=== PATIENT | female | born 1980 | race African-American/Black ===

== ENCOUNTER 2016-06-01 12:24 | Emergency (ER) | payer OTHER ==
--- NOTE | 2016-06-01 12:57 | EDM.PDOC ---
ED HPI GENERAL MEDICAL PROBLEM - General Chief Complaint: Back Pain or Injury Stated Complaint: PT FELT ON HER BUTT Time Seen by Provider: 06/01/16 12:29 - History of Present Illness INITIAL COMMENTS - FREE TEXT/NARRATIVE: HISTORY AND PHYSICAL: History of present illness: Patient 36-year-old white female 2 weeks status post fall patient states she slipped on the ice and struck her buttock she had continued pain in the region of her coccyx she denies other trauma or concern Review of systems: As per history of present illness and below otherwise all systems reviewed and negative. Past medical history: As per history of present illness and as reviewed below otherwise noncontributory. Surgical history: As per history of present illness and as reviewed below otherwise noncontributory. Social history: No reported history of drug or alcohol abuse. Family history: As per history of present illness and as reviewed below otherwise noncontributory. Physical exam: HEENT: Atraumatic, normocephalic, pupils reactive, negative for conjunctival pallor or scleral icterus, mucous membranes moist, throat clear, neck supple, nontender, trachea midline. Lungs: Clear to auscultation, breath sounds equal bilaterally, chest nontender. Heart: S1S2, regular, negative for clicks, rubs, or JVD. Abdomen: Soft, nondistended, nontender. Negative for masses or hepatosplenomegaly. Negative for costovertebral tenderness. Pelvis: Stable nontender. Genitourinary: Deferred. Rectal: Deferred. Extremities: Atraumatic, negative for cords or calf pain. Neurovascular unremarkable. Neuro: Awake, alert, oriented. Cranial nerves II through XII unremarkable. Cerebellum unremarkable. Motor and sensory unremarkable throughout. Exam nonfocal. Back: Tenderness noted in the region of the coccyx no crepitation lumbar spine negative patient was in her toes back on her heels motor sensory and deep tendon reflexes normal Diagnostics: X-ray coccyx/sacrum Therapeutics: None Impression: #1 coccygeal injury Definitive disposition and diagnosis as appropriate pending reevaluation and review of above. tail bone area Pain Score (Numeric/FACES): 6 - Related Data Allergies Allergy/AdvReac Type Severity Reaction Status Date / Time No Known Allergies Allergy Verified 06/01/16 12:33 Home Meds: Home Meds . [No Known Home Meds] 06/01/16 [History] Past Medical History HEENT History: Reports: None Cardiovascular History: Reports: None Respiratory History: Reports: None Gastrointestinal History: Reports: None Genitourinary History: Reports: None PATIENT SERVICES ASSISTANT History: Reports: None Musculoskeletal History: Reports: None Neurological History: Reports: None Psychiatric History: Reports: None Endocrine/Metabolic History: Reports: None Hematologic History: Reports: None Immunologic History: Reports: None Oncologic (Cancer) History: Reports: None Dermatologic History: Reports: None - Infectious Disease History Infectious Disease History: Reports: None - Past Surgical History Female Surgical History: Reports: Other (see below) Other Female Surgeries/Procedures: fibroid removal in uterus Social & Family History - Family History Family Medical History: Noncontributory - Tobacco Use Smoking Status *Q: Never Smoker - Caffeine Use Caffeine Use: Reports: Tea - Recreational Drug Use Recreational Drug Use: No ED ROS GENERAL - Review of Systems Review Of Systems: ROS reveals no pertinent complaints other than HPI. ED EXAM, GENERAL - Physical Exam Exam: See Below (See dictation) Course - Vital Signs Last Recorded V/S: Last Vital Signs Temp 36.3 C 06/01/16 12:33 Pulse 72 06/01/16 12:33 Resp 16 06/01/16 12:33 BP 132/79 06/01/16 12:33 Pulse Ox 98 06/01/16 12:33 - Orders/Labs/Meds Orders: Active Orders 24 hr Category Date Time Status Sacrum Coccyx Min 2V [CR] Stat Exams 06/01/16 12:39 Ordered URINALYSIS W/MICROSCOPIC [UA W/MICROSCOPIC] [URIN] Stat Lab 06/01/16 12:45 Ordered Departure - Departure Time of Disposition: 12:56 Disposition: Home, Self-Care 01 Condition: good Clinical Impression: Coccygeal injury Forms: ED Department Discharge Additional Instructions: The following information is given to patients seen in the emergency department who are being discharged to home. This information is to outline your options for follow-up care. We provide all patients seen in our emergency department with a follow-up referral. The need for follow-up, as well as the timing and circumstances, are variable depending upon the specifics of your emergency department visit. If you don't have a primary care physician on staff, we will provide you with a referral. We always advise you to contact your personal physician following an emergency department visit to inform them of the circumstance of the visit and for follow-up with them and/or the need for any referrals to a consulting specialist. The emergency department will also refer you to a specialist when appropriate. This referral assures that you have the opportunity for followup care with a specialist. All of these measure are taken in an effort to provide you with optimal care, which includes your followup. Under all circumstances we always encourage you to contact your private physician who remains a resource for coordinating your care. When calling for followup care, please make the office aware that this follow-up is from your recent emergency room visit. If for any reason you are refused follow-up, please contact the [facility] emergency department at and asked to speak to the emergency department charge nurse. Ultram as prescribed jaden as directed follow up primary medical doctor within 2 days return as needed as discussed - My Orders Last 24 Hours: My Active Orders 06/01/16 12:39 Sacrum Coccyx Min 2V [CR] Stat 06/01/16 12:45 URINALYSIS W/MICROSCOPIC [UA W/MICROSCOPIC] [URIN] Stat - Assessment/Plan Last 24 Hours: My Active Orders 06/01/16 12:39 Sacrum Coccyx Min 2V [CR] Stat 06/01/16 12:45 URINALYSIS W/MICROSCOPIC [UA W/MICROSCOPIC] [URIN] Stat
--- NOTE | 2016-06-01 14:04 | CR ---
EXAMINATION: Sacrum and coccyx HISTORY: Pain COMPARISON: None TECHNIQUE: AP and lateral views FINDINGS: Bone mineralization appears normal. The SI joints are symmetric. The sacrum and coccyx jacques ear intact without definite fracture. IMPRESSION: No acute osseous abnormality identified.
[2016-06-01 15:15] VITALS: BP 122/75
== END 2016-06-01 14:20 | disposition home or self-care (01) ==
LOC: MERGE 12:24 → MW.ED 12:24
DX: S39.92XA Unspecified injury of lower back, initial encounter (principal); W00.0XXA Fall on same level due to ice and snow, initial encounter
CPT/HCPCS: 72220; 72220-26; 81001; 99283

== ENCOUNTER 2018-10-09 12:53 | Emergency (ER) | payer OTHER ==
--- NOTE | 2018-10-09 13:05 | EDM.PDOC ---
ED HPI GENERAL MEDICAL PROBLEM - General Chief Complaint: Head Injury Stated Complaint: HEADACHE Time Seen by Provider: 10/09/18 12:54 Source of Information: Reports: Patient History Limitations: Reports: No Limitations - History of Present Illness INITIAL COMMENTS - FREE TEXT/NARRATIVE: HISTORY AND PHYSICAL: History of present illness: Patient is a 38-year-old female who presents to the emergency room with complaints of head pain and dizziness after hitting her head on 10/07/18. She states while at work she was hit in the top of the head with a couple older resulting in her feeling lightheaded. She did not pass out or blackout. Since that time she feels like she's been sleeping more and somewhat dizzy with ambulation. She has been taking some leftover pain medication (unsure of name/ dose) without much relief of her dizziness. Patient denies any fever, chills, neck pain/stiffness, change in vision, syncope or near syncope. Denies any chest pain, back pain, shortness of breath or cough. Denies any abdominal pain, nausea, vomiting, diarrhea, constipation or dysuria. Has not noted any blood in urine or stool. Patient has been eating and drinking appropriately. Review of systems: As per history of present illness and below otherwise all systems reviewed and negative. Past medical history: As per history of present illness and as reviewed below otherwise noncontributory. Surgical history: As per history of present illness and as reviewed below otherwise noncontributory. Social history: See social history for further information Family history: As per history of present illness and as reviewed below otherwise noncontributory. Physical exam: General: Well-developed and well-nourished 38-year-old female. Alert and oriented. Nontoxic appearing and in no acute distress. HEENT: Mild tenderness to the top of her scalp, skin intact, unable to see any soft tissue swelling. Normocephalic, pupils equal and reactive bilaterally, negative for conjunctival pallor or scleral icterus, mucous membranes moist, TMs normal bilaterally, throat clear, neck supple, nontender, trachea midline. No drooling or trismus noted. No meningeal signs. No hot potato voice noted. Lungs: Clear to auscultation, breath sounds equal bilaterally, chest nontender. Heart: S1S2, regular rate and rhythm without overt murmur Abdomen: Soft, nondistended, nontender. C-spine: No pinpoint vertebral tenderness upon palpation. No crepitus, step- offs or obvious deformities. Patient is ambulatory into the emergency room without difficulty or deficit. Denies any urinary or fecal incontinence. Denies any numbness, tingling or saddle paresthesia. Skin: Intact, warm, dry. No lesions or rashes noted. Extremities: Atraumatic, moves all extremities per self without difficulty or deficits. Neurovascular unremarkable. Neuro: Awake, alert, oriented. Cranial nerves II through XII unremarkable. Cerebellum unremarkable. Motor and sensory unremarkable throughout. Exam nonfocal. Notes: Head CT is negative. Vital signs remain stable. Supportive care measures were reviewed and discussed. Voices understanding and is agreeable to plan of care. Denies any further questions or concerns at this time. Diagnostics: Head CT Therapeutics: Toradol Prescription: None Impression: Concussion s/p head injury Plan: 1. Please review and follow the head injury instructions that we discussed in her printed in your discharge packet. 2. Limit any physical activities and follow cognitive rest (decrease screen time , reading, tv, etc..) over the next 24 hours pending resolution of symptoms. 3. Tylenol and/or ibuprofen as needed for pain management. 4. Follow-up with your primary care provider as we discussed. Return to the ED as needed and as discussed. Definitive disposition and diagnosis as appropriate pending reevaluation and review of above. - Related Data Allergies Allergy/AdvReac Type Severity Reaction Status Date / Time No Known Allergies Allergy Verified 04/27/15 09:21 Home Meds: Home Meds Omeprazole 20 mg PO DAILY 04/27/15 [History] . [No Known Home Meds] 06/01/16 [History] Past Medical History HEENT History: Reports: None Cardiovascular History: Reports: None Respiratory History: Reports: None Gastrointestinal History: Reports: GERD, None Genitourinary History: Reports: None NARCOTICS DETECTIVE History: Reports: None Musculoskeletal History: Reports: None Neurological History: Reports: None Psychiatric History: Reports: None Endocrine/Metabolic History: Reports: None Hematologic History: Reports: None Immunologic History: Reports: None Oncologic (Cancer) History: Reports: None Dermatologic History: Reports: None - Infectious Disease History Infectious Disease History: Reports: None - Past Surgical History Female Surgical History: Reports: Other (See Below) Social & Family History - Family History Family Medical History: Noncontributory - Caffeine Use Caffeine Use: Reports: Tea - Living Situation & Occupation Living situation: Reports: ED ROS GENERAL - Review of Systems Review Of Systems: ROS reveals no pertinent complaints other than HPI. ED EXAM, HEAD INJURY - Physical Exam Exam: See Below (See dictation) Course - Vital Signs Last Recorded V/S: Last Vital Signs Temp 97.4 F 10/09/18 13:03 Pulse 87 10/09/18 13:03 Resp 20 10/09/18 13:03 BP 155/84 H 10/09/18 13:03 Pulse Ox 98 10/09/18 13:03 - Orders/Labs/Meds Meds: Medications Discontinued Medications Generic Name Dose Route Start Last Admin Trade Name Freq PRN Reason Stop Dose Admin Ketorolac Tromethamine 60 mg 10/09/18 13:09 10/09/18 13:14 Toradol IM 10/09/18 13:10 60 mg ONETIME ONE Administration Departure - Departure Time of Disposition: 14:02 Disposition: Home, Self-Care 01 Clinical Impression: Concussion Qualifiers: Encounter type: initial encounter Loss of consciousness presence/duration: without LOC Qualified Code(s): S06.0X0A - Concussion without loss of consciousness, initial encounter Head injury Qualifiers: Encounter type: initial encounter Qualified Code(s): S09.90XA - Unspecified injury of head, initial encounter - Discharge Information Instructions: Concussion, Adult, [id number] Referrals: PCP,None [Primary Care Provider] - Forms: ED Department Discharge Additional Instructions: The following information is given to patients seen in the emergency department who are being discharged to home. This information is to outline your options for follow-up care. We provide all patients seen in our emergency department with a follow-up referral. The need for follow-up, as well as the timing and circumstances, are variable depending upon the specifics of your emergency department visit. If you don't have a primary care physician on staff, we will provide you with a referral. We always advise you to contact your personal physician following an emergency department visit to inform them of the circumstance of the visit and for follow-up with them and/or the need for any referrals to a consulting specialist. The emergency department will also refer you to a specialist when appropriate. This referral assures that you have the opportunity for follow-up care with a specialist. All of these measure are taken in an effort to provide you with optimal care, which includes your follow-up. Under all circumstances we always encourage you to contact your private physician who remains a resource for coordinating your care. When calling for follow-up care, please make the office aware that this follow-up is from your recent emergency room visit. If for any reason you are refused follow-up, please contact the [facility] Emergency Department at and asked to speak to the emergency department charge nurse. [facility] [address] [place] [address] [id number] [address] [address] 1. Please review and follow the head injury instructions that we discussed in her printed in your discharge packet. 2. Limit any physical activities and follow cognitive rest (decrease screen time , reading, tv, etc..) over the next 24 hours pending resolution of symptoms. 3. Tylenol and/or ibuprofen as needed for pain management. 4. Follow-up with your primary care provider as we discussed. Return to the ED as needed and as discussed.
[2018-10-09] MEDS ORDERED: Ketorolac 60 MG/2 ML SDV IM ONE (13:09)
--- NOTE | 2018-10-09 14:01 | CT ---
Indication: Headache. Technique: Multiple contiguous axial images were obtained from the skullbase to the vertex without intravenous contrast enhancement. Please note that all CT scans at this facility use dose modulation, iterative reconstruction, and/or weight-based dosing when appropriate to reduce radiation dose to as low as reasonably achievable. Comparison: None Findings: The ventricles are symmetric and normal in size and morphology. The basal cisterns are widely patent. No intra-axial or extra-axial hemorrhage is identified. No mass, mass effect or midline shift is seen. The bony calvarium is intact. The visualized paranasal sinuses and mastoid air cells are clear. Impression: No acute intracranial process. Please note that all CT scans at this facility use dose modulation, iterative reconstruction, and/or weight-based dosing when appropriate to reduce radiation dose to as low as reasonably achievable. Dictated by Alejandra Olmedo MD @ Oct 09 2018 1:59PM Signed by Dr. Alejandra Olmedo @ Oct 09 2018 2:00PM
[2018-10-09 14:16] VITALS: BP 149/77; PULSE 74
== END 2018-10-09 14:14 | disposition home or self-care (01) ==
LOC: MW.ED 12:53
DX: S06.0X0A Concussion without loss of consciousness, initial encounter (principal); K21.9 Gastro-esophageal reflux disease without esophagitis; Z79.899 Other long term (current) drug therapy; W18.09XA Striking against other object with subsequent fall, initial encounter; Y99.0 Civilian activity done for income or pay
CPT/HCPCS: 70450; 96372; 99283; J1885